=== PATIENT | male | born 1945 | race Hispanic/Latino ===

== ENCOUNTER → 2025-02-17 | Outpatient (REF) | payer MEDICARE | LOC: RAD 14:14 | PROVIDERS: ATTEND Internal Medicine | DX: S46.011A Strain of muscle(s) and tendon(s) of the rotator cuff of right shoulder, initial encounter (principal) ==

== ENCOUNTER → 2025-04-02 | Outpatient (REF) | payer MEDICARE | LOC: MRI 09:29 | PROVIDERS: ATTEND Internal Medicine | DX: S46.011A Strain of muscle(s) and tendon(s) of the rotator cuff of right shoulder, initial encounter (principal) ==